=== PATIENT | female | born 1960 | race Caucasian/White ===

== ENCOUNTER 2021-11-18 17:26 | Inpatient (IN) | payer OTHER ==
[~2021-11-18] VITALS: Ht 157.5 cm; Wt 60.6 kg
[2021-11-19 03:24] LABS: HEMOGLOBIN 13.2 gm/dl (12.3-15.3); RED BLOOD COUNT 4.26 M/UL (4.00-5.10)
[2021-11-19 03:53] LABS: BUN/CREATININE RATIO 22 (0-10)
--- NOTE | 2021-11-19 10:32 | NUR ---
PATIENT REFUSING TO WEAR MONITORS/BLOOD PRESSURE CUFF TO RECORD SURGERY VITALS. EDUCATED PATIENT ABOUT IMPORTANCE OF MONITORING AFTER PROCEDURE, PATIENT VERBALIZED UNDERSTANDING BUT STILL REFUSED TO BE MONITORED.
--- NOTE | 2021-11-19 10:38 | NUR ---
11/19/21 1013 AM PATIENT ASKED FOR "SOMETHING TO EAT" OR A SANDWICH, NURSE TOLD PATIENT THERE WERE NO SANDWICHES AVAILABLE ON THE UNIT. NURSE OFFERED PATIENT PUDDING, JELLO, PEANUTBUTTER AND CRACKERS. PATIENT BECAME ANGRY AND STARTED YELLING "WHAT DO YOU MEAN YOU DONT HAVE A SANDWICH, EVERY HOSPITAL HAS A SANDWICH OR A LUNCH BAG" NURSE AND TECH EXPLAINED TO PATIENT THAT LUNCH BAGS WERE NOT AVAILABLE AND THAT PATIENT'S LUNCH TRAY WOULD ARRIVE AROUND 12:00. PATIENT BECAME ANGRY AND BEGAN YELLING "IM NOT EATING ANY OF THAT, ILL JUST STARVE" NURSE AND TECH EXPLAINED TO PATIENT THAT A BREAKFAST TRAY COULD BE ORDERED AND WOULD ARRIVE MOMENTARILY, PATIENT THEN YELLED "SO NOW I CAN GET FOOD AFTER I HAD TO BEG FOR AN HOUR, I DONT WANT IT IF I HAVE TO BEG FOR IT" (PATIENT JUST ARRIVED TO UNIT FROM [facility] AT 1000, AND ASKED FOR FOOD AT 1010) NURSE THEN EXPLAINED THAT A BREAKFAST TRAY WOULD BE ORDERED. PATIENT THEN YELLED LOUDLY "GET OUT OF MY ROOM IF YOU CANT DO ANYTHING FOR ME" MOMENTS LATER WHEN FOOD TRAY ARRIVED, PATIENT BEGAN SCREAMING "I CANT EAT THIS, LOOK AT THIS FOOD, THIS IS RIDICULOUS" DR BOO THEN ARRIVED AND WAS TALKING TO NURSE ABOUT PATIENT, DURING THIS TIME PATIENT WAS PUTTING ON HER CLOTHES, THEN STATED "IM GOING OUTSIDE TO WALK AROUND" NURSE ENCOURAGED PATIENT TO STAY IN ROOM, PATIENT STARTED WALKING DOWN SILVERIO AND LEFT UNIT. SECURITY AND DR SHEN MADE AWARE OF PATIENT LEAVING UNIT
[2021-11-19 11:05] LABS: BODY FLUID SOURCE BRONCHIAL LAVAGE
--- NOTE | 2021-11-19 11:13 | NUR ---
11/19/21 1025 PATIENT REQUESTING SOMETHING FOR ANXIETY, DR SHEN CONTACTED VIA PHONE AND MADE AWARE. ALSO MADE AWARE OF SITUATION.
[2021-11-19] MEDS ORDERED: DEXILANT60 MG PO (12:31)
[2021-11-19] MEDS ORDERED: DOXEPIN HCL10 MG PO (12:32)
[2021-11-19] MEDS ORDERED: DULOXETINE HCL60 MG PO (12:33)
[2021-11-19] MEDS ORDERED: KETOROLAC TROME10 MG PO (12:34)
[2021-11-19] MEDS ORDERED: LEVOTHYROXINE50 MCG PO (12:35)
[2021-11-19] MEDS ORDERED: LINZESS145 MCG PO (12:35)
[2021-11-19] MEDS ORDERED: LOSARTAN POTASS25 MG PO (12:36)
[2021-11-19] MEDS ORDERED: METOPROLOL TART50 MG PO (12:37)
[2021-11-19] MEDS ORDERED: MELOXICAM15 MG PO (12:37)
[2021-11-19] MEDS ORDERED: PRAVASTATIN SOD20 MG PO (12:38)
[2021-11-19] MEDS ORDERED: PROMETHAZINE HC25 M1 PO (12:40)
[2021-11-19] MEDS ORDERED: SEROQUEL XR400 MG PO (12:40)
[2021-11-19] MEDS ORDERED: SUCRALFATE1 GM PO (12:42)
[2021-11-19] MEDS ORDERED: HYDROCODON-ACE1 EAC4 PO (12:43)
[2021-11-19] MEDS ORDERED: TIZANIDINE HCL4 MG PO (12:44)
== END 2021-11-19 11:27 | disposition left against medical advice (07) | DRG 167 ==
LOC: M/S 23:55
PROVIDERS: Internal Medicine; Internal Medicine Pulmonary Disease; ADMIT Internal Medicine
PROC: 0B9C8ZX Drainage of Right Upper Lung Lobe, Via Natural or Artificial Opening Endoscopic, Diagnostic (ICD-10-PCS; 2021-11-19)
PROC: BB4CZZZ Ultrasonography of Mediastinum (ICD-10-PCS; 2021-11-19)
PROC: 07B73ZX Excision of Thorax Lymphatic, Percutaneous Approach, Diagnostic (ICD-10-PCS; principal; 2021-11-19 09:00)
DX: C34.90 Malignant neoplasm of unspecified part of unspecified bronchus or lung (principal); B19.10 Unspecified viral hepatitis B without hepatic coma; Z20.822 Contact with and (suspected) exposure to COVID-19; I10 Essential (primary) hypertension; F17.210 Nicotine dependence, cigarettes, uncomplicated; E03.9 Hypothyroidism, unspecified; E78.5 Hyperlipidemia, unspecified; F41.9 Anxiety disorder, unspecified; K21.9 Gastro-esophageal reflux disease without esophagitis; K58.9 Irritable bowel syndrome, unspecified; M19.90 Unspecified osteoarthritis, unspecified site; Z90.710 Acquired absence of both cervix and uterus; Z90.49 Acquired absence of other specified parts of digestive tract; Z98.890 Other specified postprocedural states; Z88.8 Allergy status to other drugs, medicaments and biological substances
CPT/HCPCS: 80053; 85025; 85610; 85730; 87015; 87070; 87077; 87116; 87205; 87206; 87252; 89051; 93005; 94640; 94664; 94760; J0330; J1100; J2250; J2405; J2704; J3010